=== PATIENT | male | born 1995 | race Caucasian/White ===

== ENCOUNTER → 2021-09-11 | Outpatient (CLI) | payer OTHER | LOC: M PLALAB 11:01 | PROVIDERS: ATTEND Obstetrics & Gynecology | DX: Z31.440 Encounter of male for testing for genetic disease carrier status for procreative management (principal) ==

== ENCOUNTER 2021-10-23 07:51 | Emergency (ER) | payer OTHER ==
[~2021-10-23] VITALS: Ht 190.5 cm; Wt 100.0 kg
[2021-10-23] MEDS ORDERED: KETAMINE HCL 200 MG/20 ML VIAL IV ONE (09:25)
[2021-10-23] MEDS ORDERED: NS 1,000 ML IV SCH (09:25)
[2021-10-23] MEDS: propofoL 200 MG/20 ML VIAL IV.PROC PRN ×4 (09:49→09:54)
[2021-10-23 11:00] VITALS: BP 142/76
== END 2021-10-23 11:16 | disposition home or self-care (01) ==
LOC: M ED 07:51
DX: S43.004A Unspecified dislocation of right shoulder joint, initial encounter (principal); W19.XXXA Unspecified fall, initial encounter; Y92.139 Unspecified place military base as the place of occurrence of the external cause; Y99.1 Military activity